=== PATIENT | male | born 1980 | race Two or more races ===

== ENCOUNTER 2018-08-04 13:36 | Emergency (ER) | payer MEDICAID ==
[~2018-08-04] VITALS: Ht 182.9 cm; Wt 97.0 kg
[2018-08-04 17:15] VITALS: BP 130/77
[2018-08-04] MEDS ORDERED: PREDNISONE 20MG TABLET PO ONE (17:15)
[2018-08-04] MEDS ORDERED: IBUPROFEN 600MG TABLET PO ONE (17:15)
== END 2018-08-04 17:49 | disposition home or self-care (01) ==
LOC: ER 13:36
DX: B02.9 Zoster without complications (principal); F17.200 Nicotine dependence, unspecified, uncomplicated; F12.10 Cannabis abuse, uncomplicated
CPT/HCPCS: 99283; J7512